=== PATIENT | female | born 1980 | race Two or more races ===

== ENCOUNTER 2024-02-28 15:19 | Emergency (ER) | payer OTHER ==
[~2024-02-28] VITALS: Ht 177.8 cm; Wt 108.9 kg
[2024-02-28] MEDS ORDERED: LEVO-T50 MCG PO (16:27)
[2024-02-28] MEDS ORDERED: METHYLPREDNISOLONE SOD SUCC 125 MG VIAL IM STA (16:53)
[2024-02-28] MEDS ORDERED: METHYLPREDNISOLONE SOD SUCC 125 MG VIAL ONE (17:04)
[2024-02-28] MEDS ORDERED: WATER FOR INJ.,BACTERIOSTATIC 30 ML VIAL IJ ONE (17:04)
== END 2024-02-28 17:44 | disposition home or self-care (01) ==
LOC: ER 15:20
DX: L25.2 Unspecified contact dermatitis due to dyes (principal); Z88.8 Allergy status to other drugs, medicaments and biological substances